=== PATIENT | female | born 1990 ===

== ENCOUNTER 2024-05-03 04:02 | Emergency (ER) | payer SELFPAY ==
--- NOTE | 2024-05-03 04:09 | PC.NURSE ---
PATIENT WALKED OUT OF ED LOBBY BEFORE TRIAGE.
== END 2024-05-03 04:09 | disposition left against medical advice (07) ==
LOC: SERX 04:29
PROVIDERS: Emergency Provider Emergency Medicine
DX: Z53.21 Procedure and treatment not carried out due to patient leaving prior to being seen by health care provider (principal)